=== PATIENT | female | born 1995 | race Caucasian/White ===

== ENCOUNTER 2019-10-11 11:46 | Emergency (ER) | payer OTHER ==
[2019-10-11 11:50] VITALS: BP 118/63
--- NOTE | 2019-10-11 12:00 | ED Physician Documentation ---
PD HPI OPHTHO - Stated complaint Stated Complaint: L EYE REDNESS, SWELLING - Chief complaint Chief Complaint: Heent - History obtained from History obtained from: Patient - Additional information Additional information: 24-year-old noncontact lens wear was in her usual state of health This morning, she was working outside and abruptly developed redness and swelling of the Left eye. She did not think her vision was affected but nurse note made of the nursing notes showing an acuity in the left of 20/300 Review of Systems Constitutional: denies: Fever, Chills Nose: denies: Rhinorrhea / runny nose, Congestion Throat: denies: Sore throat Cardiac: denies: Chest pain / pressure, Palpitations Respiratory: denies: Dyspnea, Cough PD PAST MEDICAL HISTORY - Past Medical History Past Medical History: Yes Psych: Depression, Anxiety - Past Surgical History Past Surgical History: No - Present Medications Home Medications: Ambulatory Orders Medication Instructions Recorded Confirmed Sertraline [Zoloft] 100 mg PO DAILY 10/11/19 10/11/19 Tobramycin/Dexamethasone [Tobradex 1 drops OP QID #1 drops.susp 10/11/19 Eye Drops] - Social History Does the pt smoke?: No Smoking Status: Never smoker Does the pt drink ETOH?: No Does the pt have substance abuse?: No - Immunizations Immunizations are current?: Yes PD ED PE NORMAL - Vitals Vital signs reviewed: Yes - General General: Alert and oriented X 3, No acute distress - HEENT HEENT: PERRL, Other (She has significant conjunctivitis of the left eye with chemosis and mild discharge.) - Neuro Neuro: Alert and oriented X 3, Normal speech Results - Vitals Vitals: Vital Signs - 24 hr 10/11/19 11:48 Temperature 36.5 C Heart Rate 80 Respiratory 18 Rate Blood Pressure 118/63 O2 Saturation 98 Oxygen O2 Source Room air PD MEDICAL DECISION MAKING - ED course ED course: Patient with likely allergic conjunctivitis, it started fairly suddenly and while outside. Her vision is only affected I think because of the volume of chemosis. Departure - Departure Disposition: 01 Home, Self Care Clinical Impression: Conjunctivitis Qualifiers: Conjunctivitis type: acute Acute conjunctivitis type: unspecified Laterality: left Qualified Code(s): H10.32 - Unspecified acute conjunctivitis, left eye Condition: Good Record reviewed to determine appropriate education?: Yes Instructions: ED Conjunctivitis Nonspecific Follow-Up: Oneil Engel MD [Provider Admit Priv/Credential] - Prescriptions: Tobramycin/Dexamethasone [Tobradex Eye Drops] 1 drops OP QID #1 drops.susp Comments: Return if worse, follow-up with the eye doctor Wednesday if not better. Do not use the eyedrops for more than a week.
== END 2019-10-11 12:13 | disposition home or self-care (01) ==
LOC: ED 11:46
DX: H10.32 Unspecified acute conjunctivitis, left eye (principal); H11.422 Conjunctival edema, left eye
CPT/HCPCS: 99282; 99283

== ENCOUNTER 2021-05-14 18:19 | Emergency (ER) | payer OTHER ==
[2021-05-14] MEDS ORDERED: SODIUM CHLORIDE 0.9% 1,000 ML IV STA (18:39)
[2021-05-14] MEDS ORDERED: ONDANSETRON 4 MG/2 ML VIAL IVP STA (18:39)
[2021-05-14 19:06] LABS: BASOPHILS % (AUTO) 0.3 %; EOSINOPHILS % (AUTO) 0.1 %; HCT - HEMATOCRIT 34.4 % (37.0-47.0); LYMPHOCYTES # (AUTO) 3.1 10^3/uL (1.5-3.5); LYMPHOCYTES % (AUTO) 28.2 %; MEAN CORPUSCULAR HEMOGLOBIN 27.9 pg (27.0-31.0); MEAN CORPUSCULAR HGB CONC 34.9 g/dL (32.0-36.0); MEAN PLATELET VOLUME 8.8 fL (7.9-10.8); MONOCYTES # (AUTO) 0.8 10^3/uL (0.0-1.0); NEUTROPHILS # (AUTO) 6.9 10^3/uL (1.5-6.6); NEUTROPHILS % (AUTO) 64.1 %; PLT - PLATELET COUNT 383 10^3/uL (130-450); RED CELL DISTRIBUTION WIDTH 13.3 % (12.0-15.0); WHITE BLOOD COUNT 10.8 x10^3/uL (4.8-10.8)
[2021-05-14 19:19] LABS: ALBUMIN 4.5 g/dL (3.2-5.5); ALBUMIN/GLOBULIN RATIO 1.2 (1.0-2.2); BILIRUBIN,TOTAL 0.7 mg/dL (0.2-1.0); CALCIUM 9.7 mg/dL (8.5-10.3); CREATININE 0.6 mg/dL (0.4-1.0); POTASSIUM 3.2 mmol/L (3.5-5.0); TOTAL PROTEIN 8.3 g/dL (6.7-8.2)
[2021-05-14] MEDS ORDERED: METOCLOPRAMIDE 10 MG/2 ML VIAL IVP STA (20:58)
[2021-05-14] MEDS ORDERED: ACETAMINOPHEN 325 MG TABLET PO STA (20:59)
[2021-05-14 22:05] VITALS: BP 99/66
--- NOTE | 2021-05-14 22:06 | Ultrasound Report ---
PROCEDURE: OB First Trimester INDICATIONS: PELVIC PAIN, 8 WEEK PREG OUTSIDE/PRIOR DATING DATA: Last menstrual period (LMP): 03/25/2021. LMP-based estimated date of delivery (NELA): 12/30/2021. First dating scan (date and location): 05/14/2021. Estimated date of delivery (NELA) from first dating scan: 01/02/2022. TECHNIQUE: Real-time scanning was performed of the fetus and maternal pelvic organs, with image documentation. COMPARISON: None FINDINGS: Embryo: Single live intrauterine is identified with crown-rump length measuring 0.8 cm cor responding to 6 weeks 5 days. No subchorionic hemorrhage. Heart rate: 123 bpm Measurement variability in dating: +/- 4 weeks by LMP, +/- 7 days by mean sac diameter (use before 6 weeks gestation if crown-rump length not able to be measured), +/- 5 days by crown-rump length (6-12 weeks gestation). Maternal organs: Ovaries demonstrate a left corpus luteal cyst.. IMPRESSION: Single live intrauterine with ultrasound gestational age of 6 weeks 5 days. Recommend follow-up imaging at 20-22 weeks for dates and anatomy. Reviewed by: Emily Navarrete MD on 05/14/2021 10:05 PM PST Approved by: Emily Navarrete MD on 05/14/2021 10:05 PM PST Station ID: [id number]
--- NOTE | 2021-05-14 22:17 | ED Physician Documentation ---
History of Present Illness - Stated complaint Stated Complaint: VOMITING BLOOD - Chief complaint Chief Complaint: Abd Pain - History obtained from History obtained from: Patient - History of Present Illness Timing: Today Pain level max: 2 Pain level now: 2 - Additonal information Additional information: Patient is a 25-year-old female who presents to the emergency department stating she is about 8 weeks . She states she had nausea and vomiting starting this morning. She states that there was blood in the vomit so came in for evaluation. She states that she has mild crampy diffuse abdominal pain. Nothing makes it better or worse. Took Zofran without relief. No fevers. No chills. No coughing. No congestion. No Covid exposures. Review of Systems Ten Systems: 10 systems reviewed and negative Constitutional: denies: Fever, Chills Respiratory: denies: Cough GI: reports: Nausea, Vomiting. 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 : None HEENT: None Psych: Depression, Anxiety Musculoskeletal: None Derm: Other drug resistant infections - Past Surgical History Past Surgical History: No - Present Medications Home Medications: Ambulatory Orders Medication Instructions Recorded Confirmed Sertraline [Zoloft] 100 mg PO DAILY 10/11/19 05/14/21 - Allergies Allergies/Adverse Reactions: Allergies Allergy/AdvReac Type Severity Reaction Status Date / Time No Known Drug Allergies Allergy Verified 05/14/21 18:25 - Social History Does the pt smoke?: No Smoking Status: Never smoker Does the pt drink ETOH?: No Does the pt have substance abuse?: No - Immunizations Immunizations are current?: Yes - POLST Patient has POLST: No PD ED PE NORMAL - Vitals Vital signs reviewed: Yes - General General: Alert and oriented X 3, No acute distress, Well developed/nourished - HEENT HEENT: PERRL, Moist mucous membranes - Neck Neck: Supple, no meningeal sign - Cardiac Cardiac: RRR, Strong equal pulses - Respiratory Respiratory: No respiratory distress, Clear bilaterally - Abdomen Abdomen: Soft, Non tender, Non distended - Back Back: No CVA TTP, No spinal TTP - Derm Derm: Warm and dry - Extremities Extremities: No edema, No calf tenderness / cord - Neuro Neuro: Alert and oriented X 3 - Psych Psych: Normal mood, Normal affect Results - Vitals Vitals: Vital Signs - 24 hr 05/14/21 05/14/21 05/14/21 18:25 20:48 20:59 Temperature 36.5 C Heart Rate 110 H 95 79 Respiratory 20 17 16 Rate Blood Pressure 138/80 H 145/90 H 112/83 H O2 Saturation 100 100 100 05/14/21 22:00 Temperature Heart Rate 69 Respiratory 16 Rate Blood Pressure 99/66 O2 Saturation 99 Oxygen O2 Source Room air - Labs Labs: Laboratory Tests 05/14/21 05/14/21 19:02 19:02 WBC 10.8 RBC 4.30 Hgb 12.0 Hct 34.4 L MCV 80.0 L MCH 27.9 MCHC 34.9 RDW 13.3 Plt Count 383 MPV 8.8 Neut # (Auto) 6.9 H Lymph # (Auto) 3.1 Motley # (Auto) 0.8 Eos # (Auto) 0.0 Baso # (Auto) 0.0 Absolute Nucleated RBC 0.00 Nucleated RBC % 0.0 Sodium 133 L Potassium 3.2 L Chloride 102 Carbon Dioxide 20 L Anion Gap 11.0 BUN 11 Creatinine 0.6 Estimated GFR (MDRD) 122 Glucose 121 H Calcium 9.7 Total Bilirubin 0.7 AST 20 ALT 21 Alkaline Phosphatase 73 Total Protein 8.3 H Albumin 4.5 Globulin 3.8 Albumin/Globulin Ratio 1.2 Lipase 37 - Rads (name of study) OB ultrasound Radiology: Final report received, EMP read contemporaneously, See rad report (Intrauterine , 6 weeks 5 days. No evidence of ectopic) PD MEDICAL DECISION MAKING - ED course Complexity details: reviewed results, re-evaluated patient, considered differential, d/w patient ED course: 25-year-old female with vomiting during . Ultrasound reveals an intrauterine , 6 weeks 5 days. The patient pulled out her IV and demanded to leave before her work-up was complete and the ultrasound was read. The patient left AGAINST MEDICAL ADVICE. I did not have a chance to speak to the patient before she eloped. This document was made in part using voice recognition software. While efforts are made to proofread this document, sound alike and grammatical errors may occur. Departure - Departure Disposition: 07 Against Medical Advice Clinical Impression: Vomiting Qualifiers: Vomiting type: unspecified Nausea presence: with nausea Qualified Code(s): R11.2 - Nausea with vomiting, unspecified Qualifiers: Weeks of gestation: less than 8 weeks Qualified Code(s): Z3A.01 - Less than 8 weeks gestation of Condition: Stable Discharge Date/Time: 05/14/21 22:05
== END 2021-05-14 22:05 | disposition left against medical advice (07) ==
LOC: ED 18:19
DX: O21.0 Mild hyperemesis gravidarum (principal); Z3A.01 Less than 8 weeks gestation of pregnancy
CPT/HCPCS: 36415; 76801; 80053; 83690; 85025; 96374; 96375; 99282; 99284; A9270; J2765